=== PATIENT | female | born 1950 | race Caucasian/White ===

== ENCOUNTER 2023-10-28 14:29 | Inpatient (IN) | payer MEDICARE, OTHER ==
[~2023-10-28] VITALS: Ht 165.1 cm; Wt 68.5 kg
[2023-10-28] MEDS ORDERED: ONDANSETRON HCL/PF 4 MG/2 ML VIAL IVP PRN (15:00)
[2023-10-28] MEDS ORDERED: ACETAMINOPHEN 325 MG TABLET PO PRN ×2 (15:00→17:30)
[2023-10-28] MEDS ORDERED: Z GUARD REMEDY 4 OZ OINT TP PRN (15:00)
[2023-10-28] MEDS ORDERED: MAG HYDROX/AL HYDROX/SIMETH 30 ML UDC PO PRN (15:00)
[2023-10-28] MEDS ORDERED: MAGNESIUM HYDROXIDE 30 ML UDC PO PRN (15:00)
[2023-10-28] MEDS ORDERED: DONE5TAB34 PO (15:08)
[2023-10-28] MEDS ORDERED: AMLO5TAB4 PO (15:08)
[2023-10-28] MEDS ORDERED: MIRT-90 PO (15:08)
[2023-10-28] MEDS ORDERED: [UNRECOGNIZED DRUG - CODE] EACHEYE (15:08)
[2023-10-28] MEDS ORDERED: ATOR10TA PO (15:08)
[2023-10-28] MEDS ORDERED: METF-442 PO (15:08)
[2023-10-28] MEDS ORDERED: LAMO100T17 PO (15:08)
[2023-10-28] MEDS ORDERED: LISI20TA30 PO (15:08)
[2023-10-28] MEDS ORDERED: HYDR12.55 PO (15:08)
[2023-10-28] MEDS ORDERED: ACET-868 PO (15:08)
[2023-10-28 15:11] LABS: BASOPHILS # (AUTO) 0.1 K/uL (0.0-0.2); BASOPHILS % (AUTO) 0.9 % (0.0-2.0); EOSINOPHILS # (AUTO) 0.1 K/uL (0.0-0.7); EOSINOPHILS % (AUTO) 1.6 % (0.0-6.0); HEMATOCRIT 33 % (33-45); LYMPHOCYTES # (AUTO) 2.1 K/uL (0.8-4.8); LYMPHOCYTES % (AUTO) 22.4 % (20.0-44.0); MEAN CORPUSCULAR HEMOGLOBIN 29 PG (26.0-33.0); MEAN CORPUSCULAR HGB CONC 33 g/dl (31.0-36.0); MEAN CORPUSCULAR VOLUME 87 fL (82-100); MONOCYTES # (AUTO) 0.6 K/uL (0.1-1.30); MONOCYTES % (AUTO) 7.1 % (2.0-12.0); NEUTROPHILS # (AUTO) 6.2 K/uL (1.8-8.9); PLATELET COUNT (AUTO) 333 K/uL (150-450); RED BLOOD CELL COUNT(AUTO) 3.77 MIL/uL (4.0-5.2); RED CELL DISTRIBUTION WIDTH 17.4 % (11.5-15.0); WHITE BLOOD COUNT (AUTO) 9.1 K/uL (4.3-11.0)
[2023-10-28 15:21] LABS: CALCIUM, SERUM 8.9 mg/dL (8.5-10.1); CARBON DIOXIDE 24 mmol/L (21-32); CHLORIDE 102 mmol/L (98-107); GLUCOSE 142 mg/dL (74-106); POTASSIUM 3.5 mmol/L (3.5-5.1); SODIUM SERUM 135 mmol/L (136-145); UREA NITROGEN, BLOOD 13 mg/dL (7-18)
[2023-10-28 15:27] LABS: ALANINE AMINOTRANSFERASE 19 U/L (12-78); ALBUMIN 2.5 g/dL (3.4-5.0); ALKALINE PHOSPHATASE 115 U/L (46-116); ASPARTATE AMINOTRANSFERASE 9 U/L (15-37); BILIRUBIN,DIRECT 0.2 mg/dL (0.0-0.2); BILIRUBIN,TOTAL 0.5 mg/dL (0.2-1.0); LIPASE 97 U/L (16-77); TOTAL PROTEIN, SERUM 6.8 g/dL (6.4-8.2)
[2023-10-28 16:22] LABS: INR 1.03 (0.91-1.10); PARTIAL THROMBOPLASTIN TIME 28.5 SEC (24.3-34.3); PROTHROMBIN TIME 10.9 SECS (9.2-11.1)
[2023-10-28 20:00] VITALS: BP 114/60; TEMP 97.9; O2SAT 99
[2023-10-28] MEDS: IV NS 0.9% 1,000 ML IV PRN (20:33)
[2023-10-28] MEDS: LamoTRIgine 100 MG TABLET PO SCH (21:44)
[2023-10-28] MEDS: MIRTAZAPINE 15 MG TABLET PO SCH (21:44)
[2023-10-28] MEDS: DONEPEZIL 5 MG TABLET PO SCH (21:44)
[2023-10-29 04:00] VITALS: BP 126/57; TEMP 97.5; O2SAT 100
[2023-10-29 06:41] LABS: BASOPHILS # (AUTO) 0.1 K/uL (0.0-0.2); BASOPHILS % (AUTO) 0.7 % (0.0-2.0); EOSINOPHILS # (AUTO) 0.2 K/uL (0.0-0.7); EOSINOPHILS % (AUTO) 2.8 % (0.0-6.0); HEMATOCRIT 32 % (33-45); HEMOGLOBIN 10.7 g/dL (11.5-14.8); LYMPHOCYTES % (AUTO) 35.3 % (20.0-44.0); MEAN CORPUSCULAR HEMOGLOBIN 29 PG (26.0-33.0); MEAN CORPUSCULAR HGB CONC 33 g/dl (31.0-36.0); MEAN CORPUSCULAR VOLUME 87 fL (82-100); MONOCYTES # (AUTO) 0.7 K/uL (0.1-1.30); MONOCYTES % (AUTO) 8.2 % (2.0-12.0); NEUTROPHILS # (AUTO) 4.5 K/uL (1.8-8.9); PLATELET COUNT (AUTO) 312 K/uL (150-450); RED CELL DISTRIBUTION WIDTH 16.8 % (11.5-15.0); WHITE BLOOD COUNT (AUTO) 8.4 K/uL (4.3-11.0)
[2023-10-29 07:07] LABS: CALCIUM, SERUM 8.3 mg/dL (8.5-10.1); CARBON DIOXIDE 22 mmol/L (21-32); CHLORIDE 106 mmol/L (98-107); CREATININE 0.9 mg/dL (0.6-1.3); GLUCOSE 82 mg/dL (74-106); MAGNESIUM 1.4 mg/dL (1.8-2.4); PHOSPHORUS 2.3 mg/dL (2.5-4.9); POTASSIUM 3.4 mmol/L (3.5-5.1); SODIUM SERUM 138 mmol/L (136-145); UREA NITROGEN, BLOOD 12 mg/dL (7-18)
[2023-10-29 08:00] VITALS: BP 133/82; TEMP 98.4; O2SAT 98
[2023-10-29] MEDS: LISINOPRIL (20MG) 20 MG TABLET PO SCH (08:38)
[2023-10-29] MEDS: METFORMIN 500 MG TABLET PO SCH (08:38)
[2023-10-29] MEDS: AMLODIPINE BESYLATE 5 MG TABLET PO SCH (08:38)
[2023-10-29] MEDS: POTASSIUM CHLORIDE 20 MEQ TAB.PRT.SR PO ONE (10:26)
[2023-10-29] MEDS: MAGNESIUM OXIDE 400 MG TABLET PO ONE ×2 (10:26→10:31)
[2023-10-29] MEDS ORDERED: HYDROCORTISONE 0.5% CREAM 28.35 GM TUBE TP PRN (11:30)
[2023-10-29] MEDS: hydrOXYzine PAMOATE 25 MG CAPSULE PO PRN (13:04)
[2023-10-29] MEDS: K PHOS NEUTRAL 250 MG TABLET PO ONE (15:37)
[2023-10-29 16:00] VITALS: BP 118/67; TEMP 98.6; O2SAT 98
[2023-10-29 20:00] VITALS: BP 120/69; TEMP 98.2; O2SAT 98
[2023-10-30 04:00] VITALS: BP 124/73; TEMP 99; O2SAT 98
[2023-10-30 07:35] LABS: CALCIUM, SERUM 8.5 mg/dL (8.5-10.1); CARBON DIOXIDE 19 mmol/L (21-32); CHLORIDE 107 mmol/L (98-107); CREATININE 0.8 mg/dL (0.6-1.3); GLUCOSE 85 mg/dL (74-106); MAGNESIUM 1.6 mg/dL (1.8-2.4); POTASSIUM 3.5 mmol/L (3.5-5.1); SODIUM SERUM 140 mmol/L (136-145); UREA NITROGEN, BLOOD 13 mg/dL (7-18)
[2023-10-30 08:00] VITALS: BP 127/70; TEMP 98.2; O2SAT 96
[2023-10-30] MEDS: MAGNESIUM OXIDE 400 MG TABLET PO ONE (10:06)
[2023-10-30 16:00] VITALS: BP 131/62; TEMP 98.8; O2SAT 99
[2023-10-30] MEDS: GLUCERNA SHAKE 237 ML CAN PO SCH (16:24)
[2023-10-30 22:00] VITALS: BP 127/75; TEMP 98.5; O2SAT 97
[2023-10-31 04:00] VITALS: BP 135/85; TEMP 98.3; O2SAT 100
[2023-10-31 08:00] VITALS: BP 142/74; TEMP 99.1; O2SAT 98
[2023-10-31 08:49] VITALS: BP 142/74
== END 2023-10-31 13:30 | DRG 640 ==
LOC: ER 14:43 → MEDSG1 17:03
PROVIDERS: ADMIT Internal Medicine; ATTEND Internal Medicine
DX: E87.1 Hypo-osmolality and hyponatremia (principal); G93.41 Metabolic encephalopathy; E86.0 Dehydration; E86.1 Hypovolemia; G40.909 Epilepsy, unspecified, not intractable, without status epilepticus; R13.10 Dysphagia, unspecified; I10 Essential (primary) hypertension; F02.80 Dementia in other diseases classified elsewhere, unspecified severity, without behavioral disturbance, psychotic disturbance, mood disturbance, and anxiety; G30.9 Alzheimer's disease, unspecified; Z79.84 Long term (current) use of oral hypoglycemic drugs; Z79.899 Other long term (current) drug therapy; E78.5 Hyperlipidemia, unspecified; E11.42 Type 2 diabetes mellitus with diabetic polyneuropathy; S81.812A Laceration without foreign body, left lower leg, initial encounter; S81.811A Laceration without foreign body, right lower leg, initial encounter; X58.XXXA Exposure to other specified factors, initial encounter; Y92.9 Unspecified place or not applicable
CPT/HCPCS: 36415; 71045-TC; 80048-TC; 80076-TC; 83690-TC; 83735-TC; 84100-TC; 84484-TC; 85025-TC; 85730-TC; A4223; G0378; J7030; Q0177